=== PATIENT | male | born 1955 | race African-American/Black ===

== ENCOUNTER 2022-04-04 06:35 | Day surgery (SDC) | payer MEDICAID ==
[~2022-04-04] VITALS: Ht 170.2 cm; Wt 72.6 kg
[~2022-04-04 06:35] MED LIST: CLON0.3T PO; OXYC-582 PO; VORI200T3 PO
[2022-04-04] MEDS ORDERED: SKIN ADHESIVE 0.7 GM EA TOP ONE (06:55)
[2022-04-04] MEDS ORDERED: BUPIVACAINE HCL/PF 0.5% (5MG/ML) 30ML ONE (06:55)
[2022-04-04] MEDS ORDERED: BUPIVACAINE HCL 300 MG IMPLANT(XARACOLL) IL NR (07:00)
[2022-04-04] MEDS ORDERED: NON FORMULARY PATIENT HOME MED XX SCH (07:00)
[2022-04-04] MEDS ORDERED: LACTATED RINGERS 1,000 ML IV SCH (09:30)
[2022-04-04] MEDS ORDERED: PROPOFOL 200MG/20ML VIAL IV ONE (09:30)
[2022-04-04] MEDS ORDERED: MIDAZOLAM HCL 2 MG/2 ML VIAL ONE (09:34)
[2022-04-04] MEDS ORDERED: FENTANYL CITRATE/PF 50MCG/ML 2ML VIAL ONE ×3 (09:34→10:24)
[2022-04-04] MEDS ORDERED: SUCCINYLCHOLINE CHLORIDE 200MG/10ML IV ONE (10:04)
[2022-04-04] MEDS ORDERED: LIDOCAINE HCL 1% 10 MG/ML 10ML VIAL ONE (10:19)
[2022-04-04] MEDS ORDERED: ONDANSETRON HCL 4MG/2ML INJ ONE (10:19)
[2022-04-04] MEDS ORDERED: DEXAMETHASONE 4MG/ML 1ML VIAL ONE (10:19)
[2022-04-04] MEDS ORDERED: CEFAZOLIN SODIUM 1000MG/VIAL ONE (10:19)
[2022-04-04] MEDS: HYDROMORPHONE HCL/PF 2MG/ML CPJ IV PRN ×3 (12:34→13:27)
[2022-04-04 13:27] VITALS: BP 173/89
== END 2022-04-04 14:00 | disposition home or self-care (01) ==
LOC: OR 06:35
PROVIDERS: ATTEND Surgery
DX: K40.90 Unilateral inguinal hernia, without obstruction or gangrene, not specified as recurrent (principal); I10 Essential (primary) hypertension; F17.210 Nicotine dependence, cigarettes, uncomplicated; Z79.899 Other long term (current) drug therapy; Z98.890 Other specified postprocedural states; Z20.822 Contact with and (suspected) exposure to COVID-19; Z88.8 Allergy status to other drugs, medicaments and biological substances; Z91.013 Allergy to seafood
CPT/HCPCS: 49505; 87426; C1781; C9803; J0330; J0690; J1100; J1170; J2250; J2405; J2704; J3010; J3490; C9089